=== PATIENT | male | born 1970 | race Caucasian/White ===

== ENCOUNTER 2022-03-06 18:19 | Inpatient (IN) | payer SELFPAY ==
[~2022-03-06] VITALS: Ht 185.4 cm; Wt 104.5 kg
[2022-03-06 20:14] LABS: BASOPHILS % 0.3 % (0.0-2.0); EOSINOPHILS % 1.9 % (0.0-5.0); HEMATOCRIT. 47.4 % (42.0-52.0); LYMPHOCYTES % 21.1 % (20.0-50.0); MEAN CORPUSCULAR HEMOGLOBIN 30.5 pg (28.0-32.0); MEAN CORPUSCULAR VOLUME 90.5 fL (80.0-94.0); MEAN PLATELET VOLUME 8.9 fl (7.4-10.4); MONOCYTES % 7.3 % (2.0-8.0); NEUTROPHILS % 69.4 % (40.0-76.0); PLATELET 181 x1000/uL (130-400); RED BLOOD CELL COUNT 5.24 mill/uL (4.7-6.1); RED CELL DISTRIBUTION WIDTH 13.4 % (11.6-14.6)
[2022-03-06 20:16] LABS: CHLORIDE 109 mEq/L (98-107)
[2022-03-06 20:21] LABS: INR 1.1; PROTHROMBIN TIME 11.9 sec (9.6-11.0)
[2022-03-06] MEDS ORDERED: ASPIRIN 81MG TABLET PO NR (22:09)
[2022-03-06] MEDS ORDERED: HEPARIN 5000 UNITS/ML VIAL IV ONE (23:30)
[2022-03-06] MEDS ORDERED: HEPARIN 25,000 UNITS PREMIX 250 ML IV ONE (23:30)
[2022-03-07] VITALS (7 sets, daily range): BP systolic 96–121; BP diastolic 66–90
[2022-03-07] MEDS ORDERED: HEPARIN 60 UNITS/KG BOLUS IV NR (00:30)
[2022-03-07] MEDS ORDERED: HEPARIN 25,000 UNITS PREMIX 250 ML IV SCH (00:30)
[2022-03-07] MEDS ORDERED: DOCUSATE SODIUM 100MG CAPSULE PO PRN (01:00)
[2022-03-07] MEDS ORDERED: NITROGLYCERIN 0.4MG TABLET SL SL PRN ×2 (01:00→09:00)
[2022-03-07] MEDS ORDERED: ONDANSETRON HCL 4MG/2ML INJ IV PRN (01:00)
[2022-03-07] MEDS ORDERED: ACETAMINOPHEN 650MG/20.3ML UDC PO PRN (01:00)
[2022-03-07] MEDS ORDERED: GUAIFENESIN 200MG/10ML SUGAR FREE UDC PO PRN (01:00)
[2022-03-07] MEDS ORDERED: MAGNESIUM/ALUMINUM HYDROXIDE/SIMETHICONE 30ML UDC PO PRN (01:00)
[2022-03-07] MEDS ORDERED: HEPARIN BOLUS PRN aPTT <30 IV (07:00)
[2022-03-07] MEDS ORDERED: HEPARIN BOLUS PRN aPTT 30-44 IV (07:00)
[2022-03-07] MEDS ORDERED: FAMOTIDINE 20MG TABLET PO SCH (09:00)
[2022-03-07] MEDS ORDERED: ASPIRIN 81MG EC TABLET PO SCH (09:00)
[2022-03-07] MEDS ORDERED: ENOXAPARIN 30MG/0.3ML SYR SUBCUT SCH (09:30)
[2022-03-07] MEDS: METOPROLOL TARTRATE 25MG TABLET PO SCH ×2 (09:46→16:37)
[2022-03-07 13:04] LABS: BASOPHILS % 0.6 % (0.0-2.0); EOSINOPHILS % 2.7 % (0.0-5.0); HEMATOCRIT. 48.4 % (42.0-52.0); HEMOGLOBIN. 16.7 g/dL (14.0-18.0); LYMPHOCYTES % 30.2 % (20.0-50.0); MEAN CORPUSCULAR HEMOGLOBIN 30.8 pg (28.0-32.0); MEAN CORPUSCULAR VOLUME 89.2 fL (80.0-94.0); MEAN PLATELET VOLUME 8.8 fl (7.4-10.4); MONOCYTES % 8.5 % (2.0-8.0); PLATELET 179 x1000/uL (130-400); RED BLOOD CELL COUNT 5.42 mill/uL (4.7-6.1); RED CELL DISTRIBUTION WIDTH 13.1 % (11.6-14.6)
[2022-03-07 13:06] LABS: INR 1.1; PROTHROMBIN TIME 11.7 sec (9.6-11.0)
[2022-03-07 13:20] LABS: CREATINE KINASE MB FRACTION 2.4 ng/mL (0.5-3.6)
[2022-03-07] MEDS ORDERED: ATORVASTATIN CALCIUM 40MG TABLET PO SCH (21:00)
== END 2022-03-07 17:00 | disposition home or self-care (01) | DRG 190 ==
LOC: ER 18:19 → MICUSO 03-07 02:43 → 5EST 03-07 08:52
PROVIDERS: ADMIT Hospitalist; ATTEND Hospitalist
DX: I21.4 Non-ST elevation (NSTEMI) myocardial infarction (principal); E88.09 Other disorders of plasma-protein metabolism, not elsewhere classified; I47.1 Supraventricular tachycardia; Z82.49 Family history of ischemic heart disease and other diseases of the circulatory system; Z28.310 Unvaccinated for COVID-19
CPT/HCPCS: 36415; 71045; 80053; 82550; 82553; 84443; 84484; 85025; 87426; 93005; 93306; 99285; C9803; J1644; J1650